=== PATIENT | male | born 1960 | race Caucasian/White ===

== ENCOUNTER 2019-02-10 15:32 | Emergency (ER) | payer BC ==
[2019-02-10] MEDS ORDERED: Sodium Chloride 0.9% 10 ML Syringe FLUSH PRN (16:34)
--- NOTE | 2019-02-10 17:00 | EDM.PDOC ---
ED HPI GENERAL MEDICAL PROBLEM - General Chief Complaint: Genitourinary Problem Stated Complaint: UNABLE TO URINATE Time Seen by Provider: 02/10/19 16:00 Source of Information: Reports: Patient History Limitations: Reports: No Limitations - History of Present Illness INITIAL COMMENTS - FREE TEXT/NARRATIVE: The patient presents with urinary retention and suprapubic abdominal pain. This has been going on for about a day. My nurse put a livingston cath in and gave him relief. He then tells me this all started February 02. He was working up in [place] and he developed substernal chest pain that radiated to his back. He was seen at [facility] in [place] and had a complete work up done that included an EKG, labs, CT of his chest, abdomen and pelvis. Nothing bad was found. He was discharged home and then returned within 8 hours because he could not urinate. A livingston catheter was placed and he felt better. He returned the next day because he had numbness from his waist to his feet. He was diagnosed with diabetic neuropathy. He still had the livingston cath in and came back to [place] with it in. He then took that out yesterday. He could urinate initially but now he cannot. He said a urologist examined him in [place] and checked his prostate and he did not think that was the problem. He felt is was a neurogenic bladder. He not is numb from above the umbilicus to his toes. He has weakness in both legs. He has trouble walking. He says he has to really concentrate on each step. He has no fever, chills, cough, chest pain, shortness of breath. His abdominal pain is better now. Onset: Gradual Duration: Week(s): Severity: Moderate Improves with: Reports: None Worsens with: Reports: None Associated Symptoms: Reports: No Other Symptoms Lower Pelvic Pain Score (Numeric/FACES): 7 - Related Data Allergies Allergy/AdvReac Type Severity Reaction Status Date / Time Penicillins Allergy "turns Verified 02/10/19 16:00 purple" cholesterol medication Allergy Other Uncoded 02/10/19 16:00 Home Meds: Home Meds LORazepam 1 mg PO BEDTIME 04/10/16 [History] Lisinopril 20 mg PO BEDTIME 04/10/16 [History] metFORMIN HCl [Metformin HCl] 1,000 mg PO DAILY 04/10/16 [History] DULoxetine [Cymbalta] 30 mg PO DAILY 02/04/19 [History] atorvaSTATin Calcium [Atorvastatin Calcium] 20 mg PO DAILY 02/04/19 [History] Ciprofloxacin HCl [Cipro] 500 mg PO BID 02/10/19 [History] Tamsulosin [Flomax] 2 cap PO BEDTIME 02/10/19 [History] Past Medical History HEENT History: Reports: Impaired Vision Other HEENT History: wears eyeglasses. 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 Musculoskeletal Surgical History: Reports: Knee Replacement, Shoulder Surgery, Other (See Below) Other Musculoskeletal Surgeries/Procedures:: bilateral knee replacement Oncologic Surgical History: Reports: None Social & Family History - Family History Family Medical History: Noncontributory - Tobacco Use Smoking Status *Q: Never Smoker Second Hand Smoke Exposure: No - Caffeine Use Caffeine Use: Reports: Coffee, Soda Caffeine Use Comment: 3 44oz drinks/day - Recreational Drug Use Recreational Drug Use: No ED ROS GENERAL - Review of Systems Review Of Systems: See Below Constitutional: Reports: No Symptoms HEENT: Reports: No Symptoms Respiratory: Reports: No Symptoms Cardiovascular: Reports: No Symptoms Endocrine: Reports: No Symptoms GI/Abdominal: Reports: Abdominal Pain. Denies: Nausea, Vomiting : Reports: Other (Urinary retention) Musculoskeletal: Reports: Other (bilateral leg numbness and weakness) Neurological: Reports: Numbness (abdomen to legs), Weakness (legs) ED EXAM, RENAL/ - Physical Exam Exam: See Below Exam Limited By: No Limitations General Appearance: Alert, No Apparent Distress Ears: Normal External Exam Nose: Normal Inspection Head: Atraumatic, Normocephalic Neck: Normal Inspection Respiratory/Chest: No Respiratory Distress, Lungs Clear, Normal Breath Sounds Cardiovascular: Regular Rate, Rhythm, No Edema, No Murmur GI/Abdominal: Soft, Non-Tender, No Organomegaly, No Mass (Male) Exam: Other (livingston cath in) Back Exam: Normal Inspection Neurological: Alert, Oriented, Other (numbness from just above the umbilicus to his toes. Mild to moderate weakness to both legs.) Course - Vital Signs Last Recorded V/S: Last Vital Signs Temp 98.1 F 02/10/19 15:55 Pulse 96 02/10/19 15:55 Resp 16 02/10/19 15:55 BP 149/82 H 02/10/19 15:55 Pulse Ox 94 L 02/10/19 15:55 - Orders/Labs/Meds Orders: Active Orders 24 hr Category Date Time Status Peripheral IV Care [RC] . DIRECTED Care 02/10/19 16:34 Active CBC WITH AUTO DIFF [HEME] Stat Lab 02/10/19 16:34 Ordered COMPREHENSIVE METABOLIC PN,CMP [CHEM] Stat Lab 02/10/19 16:34 Ordered MAGNESIUM [CHEM] Stat Lab 02/10/19 16:34 Ordered PHOSPHORUS [CHEM] Stat Lab 02/10/19 16:34 Ordered UA W/MICROSCOPIC [URIN] Stat Lab 02/10/19 16:15 Received Sodium Chloride 0.9% [Saline Flush] Med 02/10/19 16:34 Active 10 ml FLUSH ASDIRECTED PRN Peripheral IV Insertion Adult [OM.PC] Stat Oth 02/10/19 16:34 Ordered Medication Orders Sodium Chloride (Saline Flush) 10 ml FLUSH ASDIRECTED PRN PRN Reason: Keep Vein Open Meds: Medications Generic Name Dose Route Start Last Admin Trade Name Freq PRN Reason Stop Dose Admin Sodium Chloride 10 ml 02/10/19 16:34 Saline Flush FLUSH ASDIRECTED PRN Keep Vein Open - Re-Assessments/Exams Free Text/Narrative Re-Assessment/Exam: 02/10/19 17:03 My nurse put the [place] cath in. He had about 1,800 mls out now. I ordered some labs. There is something neurologically going on in his spine. I feel he needs an emergent MRI but we do not have an MRI tonight. I called [facility] in [place] and Dr Osorio accepted the patient. I will transfer him by ambulance. Departure - Departure Time of Disposition: 17:05 Disposition: DC/Tfer to Acute Hospital 02 Condition: Poor Clinical Impression: Urinary retention, Bilateral leg weakness, Bilateral leg numbness - Discharge Information Referrals: Melony Boone MD [Primary Care Provider] - Sepsis Event Note - Evaluation Sepsis Screening Result: No Definite Risk - Focused Exam Vital Signs: Vital Signs Temp Pulse Resp BP Pulse Ox 02/10/19 15:55 98.1 F 96 16 149/82 H 94 L Date Exam was Performed: 02/10/19 Time Exam was Performed: 16:54 - My Orders Last 24 Hours: My Active Orders 02/10/19 16:15 UA W/MICROSCOPIC [URIN] Stat 02/10/19 16:34 Peripheral IV Care [RC] . DIRECTED CBC WITH AUTO DIFF [HEME] Stat COMPREHENSIVE METABOLIC PN,CMP [CHEM] Stat MAGNESIUM [CHEM] Stat PHOSPHORUS [CHEM] Stat Sodium Chloride 0.9% [Saline Flush] 10 ml FLUSH ASDIRECTED PRN Peripheral IV Insertion Adult [OM.PC] Stat - Assessment/Plan Last 24 Hours: My Active Orders 02/10/19 16:15 UA W/MICROSCOPIC [URIN] Stat 02/10/19 16:34 Peripheral IV Care [RC] . DIRECTED CBC WITH AUTO DIFF [HEME] Stat COMPREHENSIVE METABOLIC PN,CMP [CHEM] Stat MAGNESIUM [CHEM] Stat PHOSPHORUS [CHEM] Stat Sodium Chloride 0.9% [Saline Flush] 10 ml FLUSH ASDIRECTED PRN Peripheral IV Insertion Adult [OM.PC] Stat
[2019-02-10] MEDS ORDERED: cefTRIAXone 1 GM in Sodium Chloride 0.9% 100 ML IV ONE (17:34)
[2019-02-10 18:09] VITALS: BP 147/84; PULSE 93
== END 2019-02-10 18:05 ==
LOC: JD.ED 15:32
DX: R33.9 Retention of urine, unspecified (principal); M62.81 Muscle weakness (generalized); R20.0 Anesthesia of skin; I10 Essential (primary) hypertension; E11.21 Type 2 diabetes mellitus with diabetic nephropathy; E11.42 Type 2 diabetes mellitus with diabetic polyneuropathy; E78.00 Pure hypercholesterolemia, unspecified; M19.90 Unspecified osteoarthritis, unspecified site; F41.9 Anxiety disorder, unspecified; F32.9 Major depressive disorder, single episode, unspecified; E66.9 Obesity, unspecified; Z68.41 Body mass index [BMI] 40.0-44.9, adult; Z88.0 Allergy status to penicillin; Z88.8 Allergy status to other drugs, medicaments and biological substances; Z79.84 Long term (current) use of oral hypoglycemic drugs; Z79.899 Other long term (current) drug therapy
CPT/HCPCS: 36415; 51702; 80053; 81001; 83735; 84100; 85025; 87086; 87088; 87186; 96374; 99284; J0696; J7050

== ENCOUNTER 2020-08-16 07:06 | Day surgery (SDC) | payer BC ==
[~2020-08-16 07:06] MED LIST: Lactated Ringers 1,000 ML IV SCH; Lidocaine 1%/Sod Bicarbonate in NS 8.4% 1 ML Syringe IDERM PRN; Sodium Chloride 0.9% 10 ML Syringe FLUSH PRN
--- NOTE | 2020-08-16 07:13 | PCM.PREANE ---
Preanesthetic Assessment - Procedure Proposed Procedure: Colonoscopy - Anesthesia/Transfusion/Family Hx Anesthesia History: Prior Anesthesia Without Reaction Family History of Anesthesia Reaction: No Transfusion History: No Prior Transfusion(s) Intubation History: Unknown - Review of Systems General: No Symptoms Pulmonary: No Symptoms Cardiovascular: No Symptoms Gastrointestinal: No Symptoms Neurological: No Symptoms Other: Reports: Diabetes - Physical Assessment NPO Status Date: 08/14/20 NPO Status Time: 17:30 Vital Signs: BP 150/84 HR 69 Sat 95% RR 16 97.2 Height: 1.78 m Weight: 129.4 kg ASA Class: 3 Mental Status: Alert & Oriented x3 Airway Class: Mallampati = 2 Dentition: Reports: Normal Dentition Thyro-Mental Finger Breadths: 3 Mouth Opening Finger Breadths: 3 ROM/Head Extension: Full Lungs: Clear to Auscultation, Normal Respiratory Effort Cardiovascular: Regular Rate, Regular Rhythm, Murmurs - Allergies Allergies/Adverse Reactions: Allergies Allergy/AdvReac Type Severity Reaction Status Date / Time atorvastatin Allergy Muscle Verified 08/15/20 11:14 Aches Penicillins Allergy "turns Verified 08/15/20 11:14 purple" simvastatin [From Zocor] Allergy Muscle Verified 08/15/20 11:14 Aches - Blood Blood Available: No Product(s) Available: None - Anesthesia Plan Pre-Op Medication Ordered: None - Acknowledgements Anesthesia Type Planned: MAC Pt an Appropriate Candidate for the Planned Anesthesia: Yes Alternatives and Risks of Anesthesia Discussed w Pt/Guardian: Yes Pt/Guardian Understands and Agrees with Anesthesia Plan: Yes PreAnesthesia Questionnaire HEENT History: Reports: Allergic Rhinitis, Hard of Hearing, Other (See Below) Other HEENT History: impacted cerumen, wears glasses Cardiovascular History: Reports: Heart Murmur, High Cholesterol, Hypertension, Other (See Below) Other Cardiovascular History: peripheral edema Respiratory History: Reports: Sleep Apnea Other Respiratory History: Wears CPAP at night Gastrointestinal History: Reports: None Genitourinary History: Reports: Other (See Below) Other Genitourinary History: retention CT TECH History: Reports: None Musculoskeletal History: Reports: Arthritis, Other (See Below) Other Musculoskeletal History: acute hip pain, leg weakness, myalgia, great toe pain Neurological History: Reports: Neuropathy, Diabetic, Other (See Below) Other Neuro History: balance problem Psychiatric History: Reports: Anxiety, Depression, Other (See Below) Other Psychiatric History: ETOH abuse quit 1996 Endocrine/Metabolic History: Reports: Diabetes, Type II, Obesity/BMI 30+, Vitamin D Deficiency Hematologic History: Reports: None Immunologic History: Reports: None Oncologic (Cancer) History: Reports: None Dermatologic History: Reports: Other (See Below) Other Dermatologic History: foot corn, fungal skin infection - Infectious Disease History Infectious Disease History: Reports: Chicken Pox - Past Surgical History HEENT Surgical History: Reports: Myringotomy w Tube(s) Cardiovascular Surgical History: Reports: None Respiratory Surgical History: Reports: None GI Surgical History: Reports: Hernia, Inguinal (Not repaired) Female Surgical History: Reports: None Male Surgical History: Reports: None Endocrine Surgical History: Reports: None Neurological Surgical History: Reports: None Musculoskeletal Surgical History: Reports: Hip Replacement, Knee Replacement, ORIF, Other (See Below) Other Musculoskeletal Surgeries/Procedures:: bilateral total knee replacements, left shoulder surgery, right ankle ORIF, right hip replacement Oncologic Surgical History: Reports: None Dermatological Surgical History: Reports: None - Past Imaging History Past Imaging History: Reports: Stress Testing (08/03/20: EF 66%) - SUBSTANCE USE Tobacco Use Status *Q: Former Tobacco User Tobacco Use Within Last Twelve Months: No Second Hand Smoke Exposure: No Days Per Week of Alcohol Use: 0 Number of Drinks Per Day: 0 Total Drinks Per Week: 0 Recreational Drug Use History: No - HOME MEDS Home Medications: Home Meds LORazepam 1 mg PO BEDTIME 04/10/16 [History] Lisinopril 20 mg PO BEDTIME 04/10/16 [History] metFORMIN HCl [Metformin HCl] 1,000 mg PO BID 04/10/16 [History] Ezetimibe [Zetia] 10 mg PO DAILY 08/15/20 [History] Gabapentin [Neurontin] 600 mg PO QID 08/15/20 [History] - CURRENT (IN HOUSE) MEDS Current Meds: Current Medications Lactated Ringer's (Ringers, Lactated) 1,000 mls @ 125 mls/hr IV ASDIRECTED ANA LAURA Stop: 08/16/20 23:00 Lidocaine/Sodium Bicarbonate (Lidocaine 1%/Sod Bicarbonate In Ns 8.4% 1 Ml Syringe) 0.25 ml IDERM ONETIME PRN PRN Reason: Prior to IV Start Stop: 08/16/20 18:00 Sodium Chloride (Sodium Chloride 0.9% 10 Ml Syringe) 10 ml FLUSH ASDIRECTED PRN PRN Reason: Keep Vein Open Stop: 08/16/20 18:00
[2020-08-16] MEDS ORDERED: Propofol 200 MG/20 ML SDV ONE ×2 (07:33→09:06)
[2020-08-16] MEDS ORDERED: Lidocaine 1% 4 ML ONE (07:34)
--- NOTE | 2020-08-16 09:41 | PCM48HPAN ---
Post Anesthesia Note - EVALUATION WITHIN 48HRS OF ANESTHETIC Vital Signs in Normal Range: Yes Patient Participated in Evaluation: Yes Respiratory Function Stable: Yes Airway Patent: Yes Cardiovascular Function Stable: Yes Hydration Status Stable: Yes Pain Control Satisfactory: Yes Nausea and Vomiting Control Satisfactory: Yes Mental Status Recovered: Yes Vital Signs: Last Vital Signs Temp 37.0 C 08/16/20 09:30 Pulse 70 08/16/20 09:30 Resp 16 08/16/20 09:30 BP 120/82 08/16/20 09:30 Pulse Ox 94 L 08/16/20 09:30
--- NOTE | 2020-08-16 09:48 | PCM.PRNOTE ---
- Free Text/Narrative Note: Date: 08/16/2020 Procedure: diagnostic colonoscopy Indication: positive cologuard screening Endoscopist: Baltazar Thurman MD Findings: single pedunculated polyp less than 1 cm near hepatic flexure. Prep was okay. Detailed Report: The patient was taken to the endoscopy suite and placed in left lateral dec ubitus position. Timeout was performed and monitored anesthesia care was initiated. Visual inspection of the anus revealed no abnormality. Digital rectal exam was unremarkable. The colonoscope was inserted and advanced all the way to the cecum. The appendiceal orifice was not well visualized due to particulate stool matter in the cecum. The ileocecal valve was visualized. Copious irrigation was used to clear mucosal surfaces in the ascending colon, but the endoscope continuously clogged with particulate matter. Other parts of the colon were comparatively very well-prepped. The colonoscope was slowly withdrawn and mucosal surfaces carefully inspected. A pedunculated polyp was identified near the hepatic flexure, measuring a little bit less than 1 cm. This was removed in its entirety using hot snare polypectomy technique. The specimen was successfully retrieved. No other polyps were identified. A few small diverticula were noted in the distal aspect of the colon. No significant hemorrhoidal disease was appreciated on retroflexion in the rectum. Air was suctioned from the distal colon and rectum prior to withdrawal of the scope. The patient tolerated the procedure well.
[2020-08-16 10:06] VITALS: BP 122/71; PULSE 67
== END 2020-08-16 10:08 | disposition home or self-care (01) ==
LOC: JD.SDS 07:06
PROVIDERS: ATTEND Surgery
DX: K51.40 Inflammatory polyps of colon without complications (principal); K57.30 Diverticulosis of large intestine without perforation or abscess without bleeding; E78.2 Mixed hyperlipidemia; I10 Essential (primary) hypertension; E11.40 Type 2 diabetes mellitus with diabetic neuropathy, unspecified; G47.33 Obstructive sleep apnea (adult) (pediatric); Z88.8 Allergy status to other drugs, medicaments and biological substances; Z79.899 Other long term (current) drug therapy; Z79.84 Long term (current) use of oral hypoglycemic drugs; Z98.890 Other specified postprocedural states; Z88.0 Allergy status to penicillin
CPT/HCPCS: 45385; 82947; J2704; J7120; 00811

== ENCOUNTER 2022-09-16 18:55 | Inpatient (IN) | payer BC ==
[2022-09-16] MEDS ORDERED: Sodium Chloride 0.9% 10 ML Syringe FLUSH PRN (19:47)
[2022-09-16 20:08] LABS: BASOPHILS ABSOLUTE AUTO 0.01 K/mm3 (0.01-0.08); BASOPHILS PERCENT AUTO 0.1 % (0.1-1.2); EOSINOPHILS PERCENT AUTO 0 (0.8-7.0); HEMATOCRIT 45.3 % (40.1-51.0); HEMOGLOBIN 14.8 gm/dl (13.7-17.5); IMMATURE GRAN ABSOLUTE AUTO 0.03 K/mm3 (0.00-0.10); IMMATURE GRAN PERCENT AUTO 0.2 % (<=1.0); LYMPHOCYTES ABSOLUTE AUTO 1.03 K/mm3 (1.32-3.57); LYMPHOCYTES PERCENT AUTO 7.1 % (21.8-53.1); MEAN CORPUSCULAR HGB CONC 32.7 g/dl (32.2-35.5); MEAN CORPUSCULAR VOLUME 85.6 fl (79.0-92.2); MONOCYTES ABSOLUTE AUTO 1.43 K/mm3 (0.30-0.82); MONOCYTES PERCENT AUTO 9.9 % (5.3-12.2); NEUTROPHILS ABSOLUTE AUTO 11.93 K/mm3 (1.78-5.38); NEUTROPHILS PERCENT AUTO 82.7 % (34.0-67.9); PLATELET COUNT,PLT 212 K/mm3 (163-337); RED BLOOD CELL COUNT 5.29 M/mm3 (4.63-6.08); WHITE BLOOD CELL COUNT,WBC 14.43 K/mm3 (4.23-9.07)
[2022-09-16 20:30] LABS: A/G RATIO 1.1 (1-2); ALBUMIN 3.9 g/dl (3.4-5.0); ANION GAP 14.3 (5-15); BILIRUBIN TOTAL 0.7 mg/dL (0.2-1.0); BUN/CREATININE RATIO 13.6 (14-18); C-REACTIVE PROTEIN 6.4 mg/dL (<1.0); CALCIUM 9.5 mg/dL (8.5-10.1); CREATININE 1.1 mg/dL (0.7-1.3); EST CRCL DRUG DOSING (CG) 71.89 mL/min; MAGNESIUM 1.5 mg/dL (1.8-2.4); POTASSIUM,K 4.3 mEq/L (3.5-5.1); PROTEIN TOTAL,TP 7.5 g/dl (6.4-8.2)
[2022-09-16] MEDS ORDERED: Lactated Ringers 1,000 ML IV ONE (20:50)
[2022-09-16 21:15] LABS: APPEARANCE,URINE CLEAR (Clear); BILIRUBIN,URINE NEGATIVE (Negative); COLOR,URINE YELLOW (Yellow); GLUCOSE,URINE NEGATIVE (Negative); KETONES,URINE NEGATIVE (Negative); LEUKOCYTE ESTERASE,URINE NEGATIVE (Negative); NITRITE,URINE NEGATIVE (Negative); OCCULT BLOOD,URINE NEGATIVE (Negative); PROTEIN,URINE NEGATIVE (Negative); UROBILINOGEN,URINE 0.2 (0.2-1.0)
[2022-09-16 21:17] LABS: RBC,URINE 0-5 /hpf (0-5); SQUAMOUS EPITHELIAL CELLS,UR NOT SEEN /hpf (0-5); WBC,URINE 0-5 /hpf (0-5)
[2022-09-16 21:18] LABS: BACTERIA,URINE FEW /hpf (FEW); MUCUS,URINE NOT SEEN /hpf (FEW)
[2022-09-16] MEDS ORDERED: Ondansetron 4 MG/2 ML SDV IVPUSH ONE (21:21)
[2022-09-16] MEDS ORDERED: Naloxone 0.4 MG/ML SDV IVPUSH PRN (21:21)
[2022-09-16] MEDS ORDERED: HYDROmorphone 0.5 MG/0.5 ML Syringe IVPUSH ONE (21:21)
[2022-09-16] MEDS ORDERED: Iopamidol 612 MG/ML 100 ML Bottle IVPUSH ONE (22:35)
[2022-09-16] MEDS ORDERED: metroNIDAZOLE/Normal Saline 500 MG in Premix Bag 1 BAG IV SCH (23:45)
[2022-09-16] MEDS ORDERED: D5 1/2 NS w/ 20 mEq/L KCl 1,000 ML IV SCH (23:45)
[2022-09-17] MEDS ORDERED: HYDROmorphone 0.5 MG/0.5 ML Syringe IVPUSH ONE (00:50)
[2022-09-17] MEDS: Levofloxacin/Dextrose 5%-Water 750 MG in Premix Bag 1 BAG IV SCH ×2 (03:36→23:58)
[2022-09-17] MEDS ORDERED: Bupivacaine 0.5%/EPINEPHrine 1:200,000 50 ML MDV ONE (06:54)
[2022-09-17] MEDS ORDERED: Lidocaine 1% 30 ML SDV ONE (06:55)
[2022-09-17] MEDS ORDERED: fentaNYL 100 MCG/2 ML SDV IVPUSH PRN (07:13)
[2022-09-17] MEDS ORDERED: Ondansetron 4 MG/2 ML SDV IVPUSH PRN ×2 (07:13→08:54)
[2022-09-17] MEDS ORDERED: HYDROmorphone 0.5 MG/0.5 ML Syringe IVPUSH PRN ×2 (07:13→08:49)
[2022-09-17] MEDS ORDERED: Ondansetron 4 MG/2 ML SDV ONE (07:28)
[2022-09-17] MEDS ORDERED: Rocuronium 50 MG/5 ML Vial ONE (07:28)
[2022-09-17] MEDS ORDERED: Lidocaine 1% 5 ML VIAL ONE (07:28)
[2022-09-17] MEDS ORDERED: fentaNYL 250 MCG/5 ML SDV ONE (07:29)
[2022-09-17] MEDS ORDERED: Propofol 200 MG/20 ML SDV ONE (07:29)
[2022-09-17] MEDS ORDERED: Midazolam 1 MG/ML 2 ML SDV ONE (07:29)
[2022-09-17] MEDS ORDERED: Lactated Ringers 1,000 ML ONE ×2 (07:40→08:36)
[2022-09-17] MEDS ORDERED: Dexamethasone 4 MG/ML 5 ML MDV ONE (08:05)
[2022-09-17] MEDS ORDERED: Sugammadex Sodium 200 MG/2 ML VIAL ONE (08:09)
[2022-09-17] MEDS ORDERED: HYDROmorphone 0.5 MG/0.5 ML Syringe ONE (08:13)
[2022-09-17] MEDS ORDERED: Docusate Sodium 100 MG Cap PO PRN (08:49)
[2022-09-17] MEDS ORDERED: oxyCODONE 5 MG Tab PO PRN (08:54)
[2022-09-17] MEDS ORDERED: Ezetimibe 10 MG Tab PO SCH (09:00)
[2022-09-17] MEDS: metFORMIN 500 MG Tab PO SCH ×2 (10:43→21:22)
[2022-09-17] MEDS: Gabapentin 600 MG Tab PO SCH ×5 (10:43→21:24)
[2022-09-17] MEDS: Acetaminophen 325 MG Tab PO PRN ×2 (10:43→18:59)
[2022-09-17] MEDS: metroNIDAZOLE/Normal Saline 500 MG in Premix Bag 1 BAG IV SCH ×2 (10:44→16:48)
[2022-09-17] MEDS: Lactated Ringers 1,000 ML IV SCH ×2 (12:17→18:50)
[2022-09-17] MEDS: traMADol 50 MG Tab PO PRN ×2 (12:21→21:22)
[2022-09-17] MEDS: Ibuprofen 600 MG Tab PO PRN (15:46)
[2022-09-17] MEDS: Simethicone 80 MG Tab.Chew PO PRN ×2 (15:47→21:26)
[2022-09-17] MEDS: Ezetimibe 10 MG Tab PO SCH (21:22)
[2022-09-17] MEDS: Lisinopril 20 MG Tab PO SCH (21:24)
[2022-09-17] MEDS: LORazepam 1 MG Tab PO SCH (21:26)
[2022-09-17] MEDS: Enoxaparin 40 MG/0.4 ML Syringe SUBCUT SCH (21:34)
[2022-09-18] MEDS: Ibuprofen 600 MG Tab PO PRN (00:10)
[2022-09-18] MEDS: metroNIDAZOLE/Normal Saline 500 MG in Premix Bag 1 BAG IV SCH ×3 (01:31→17:12)
[2022-09-18] MEDS: metFORMIN 500 MG Tab PO SCH ×2 (09:16→20:55)
[2022-09-18] MEDS: Gabapentin 600 MG Tab PO SCH ×4 (09:17→20:55)
[2022-09-18] MEDS: Enoxaparin 40 MG/0.4 ML Syringe SUBCUT SCH (09:20)
[2022-09-18] MEDS: Acetaminophen 325 MG Tab PO PRN ×2 (14:10→21:00)
[2022-09-18] MEDS: traMADol 50 MG Tab PO PRN (14:12)
[2022-09-18] MEDS: Ezetimibe 10 MG Tab PO SCH (20:55)
[2022-09-18] MEDS: Lisinopril 20 MG Tab PO SCH (20:55)
[2022-09-18] MEDS: LORazepam 1 MG Tab PO SCH (20:56)
[2022-09-18] MEDS: Levofloxacin/Dextrose 5%-Water 750 MG in Premix Bag 1 BAG IV SCH (23:33)
[2022-09-19] MEDS: metroNIDAZOLE/Normal Saline 500 MG in Premix Bag 1 BAG IV SCH ×3 (01:23→17:09)
[2022-09-19 06:21] LABS: BASOPHILS ABSOLUTE AUTO 0.01 K/mm3 (0.01-0.08); BASOPHILS PERCENT AUTO 0.1 % (0.1-1.2); EOSINOPHILS ABSOLUTE AUTO 0.06 K/mm3 (0.04-0.54); EOSINOPHILS PERCENT AUTO 0.6 (0.8-7.0); HEMATOCRIT 36.6 % (40.1-51.0); IMMATURE GRAN ABSOLUTE AUTO 0.03 K/mm3 (0.00-0.10); IMMATURE GRAN PERCENT AUTO 0.3 % (<=1.0); LYMPHOCYTES ABSOLUTE AUTO 0.51 K/mm3 (1.32-3.57); LYMPHOCYTES PERCENT AUTO 5.1 % (21.8-53.1); MEAN CORPUSCULAR VOLUME 87.6 fl (79.0-92.2); MEAN PLATELET VOLUME 11.4 fl (9.4-12.3); MONOCYTES ABSOLUTE AUTO 1.16 K/mm3 (0.30-0.82); MONOCYTES PERCENT AUTO 11.7 % (5.3-12.2); NEUTROPHILS ABSOLUTE AUTO 8.18 K/mm3 (1.78-5.38); NEUTROPHILS PERCENT AUTO 82.2 % (34.0-67.9); PLATELET COUNT,PLT 158 K/mm3 (163-337); RED BLOOD CELL COUNT 4.18 M/mm3 (4.63-6.08); WHITE BLOOD CELL COUNT,WBC 9.95 K/mm3 (4.23-9.07)
[2022-09-19 06:45] LABS: HEMOGLOBIN 11.7 gm/dl (13.7-17.5)
[2022-09-19] MEDS: Enoxaparin 40 MG/0.4 ML Syringe SUBCUT SCH (08:22)
[2022-09-19] MEDS: Gabapentin 600 MG Tab PO SCH ×5 (08:22→20:03)
[2022-09-19] MEDS: metFORMIN 500 MG Tab PO SCH ×2 (08:22→20:02)
[2022-09-19] MEDS: Simethicone 80 MG Tab.Chew PO PRN ×3 (08:28→20:02)
[2022-09-19] MEDS: Acetaminophen 325 MG Tab PO PRN (11:37)
[2022-09-19] MEDS: Ibuprofen 600 MG Tab PO PRN ×2 (14:20→20:17)
[2022-09-19] MEDS: Ezetimibe 10 MG Tab PO SCH (20:02)
[2022-09-19] MEDS: Lisinopril 20 MG Tab PO SCH (20:03)
[2022-09-19] MEDS: LORazepam 1 MG Tab PO SCH (20:07)
[2022-09-19] MEDS: Levofloxacin/Dextrose 5%-Water 750 MG in Premix Bag 1 BAG IV SCH (23:26)
[2022-09-20] MEDS: metroNIDAZOLE/Normal Saline 500 MG in Premix Bag 1 BAG IV SCH ×2 (01:04→08:45)
[2022-09-20] MEDS: Ibuprofen 600 MG Tab PO PRN (08:43)
[2022-09-20] MEDS: metFORMIN 500 MG Tab PO SCH (08:43)
[2022-09-20] MEDS: Gabapentin 600 MG Tab PO SCH ×2 (08:44→12:58)
[2022-09-20] MEDS: Enoxaparin 40 MG/0.4 ML Syringe SUBCUT SCH (08:45)
[2022-09-20] MEDS: Simethicone 80 MG Tab.Chew PO PRN (08:52)
[2022-09-20 12:03] VITALS: BP 137/98; PULSE 69
== END 2022-09-20 14:40 | disposition home or self-care (01) | DRG 710 ==
LOC: JD.ED 18:55 → JD.SDS 09-17 06:46 → JD.MS 09-17 10:05
PROVIDERS: ADMIT Surgery; ATTEND Surgery
PROC: 0DTJ4ZZ Resection of Appendix, Percutaneous Endoscopic Approach (ICD-10-PCS; principal; 2022-09-17)
PROC: 3E0M45Z Introduction of Adhesion Barrier into Peritoneal Cavity, Percutaneous Endoscopic Approach (ICD-10-PCS; 2022-09-17)
PROC: 3E03329 Introduction of Other Anti-infective into Peripheral Vein, Percutaneous Approach (ICD-10-PCS; 2022-09-17)
DX: A41.9 Sepsis, unspecified organism (principal); K35.891 Other acute appendicitis without perforation, with gangrene; E78.00 Pure hypercholesterolemia, unspecified; I10 Essential (primary) hypertension; E11.43 Type 2 diabetes mellitus with diabetic autonomic (poly)neuropathy; G47.30 Sleep apnea, unspecified; M19.90 Unspecified osteoarthritis, unspecified site; F41.9 Anxiety disorder, unspecified; F32.A Depression, unspecified; Z96.653 Presence of artificial knee joint, bilateral; Z96.641 Presence of right artificial hip joint; R33.8 Other retention of urine; E66.01 Morbid (severe) obesity due to excess calories; N31.9 Neuromuscular dysfunction of bladder, unspecified; Z88.0 Allergy status to penicillin; Z88.8 Allergy status to other drugs, medicaments and biological substances; Z79.899 Other long term (current) drug therapy; Z79.84 Long term (current) use of oral hypoglycemic drugs; Z68.41 Body mass index [BMI] 40.0-44.9, adult; Z86.16 Personal history of COVID-19; Z87.891 Personal history of nicotine dependence; Z98.890 Other specified postprocedural states
CPT/HCPCS: 00840; 36415; 51702; 51798; 74177; 74177-26; 80053; 81001; 83605; 83690; 83735; 85025; 86140; 87040; 94760; 94761; 96361; 96365; 96366; 96367; 96375; 96376; 99140; 99285; 99285-25; A9270-GY; J1100; J1170; J1650; J1956; J2250; J2405; J2704; J3010; J3480; J3490; J7120; Q9967